=== PATIENT | female | born 1990 | race American Indian/Alaskan Native ===

== ENCOUNTER 2016-09-24 17:24 | Emergency (ER) | payer MEDICAID, OTHER ==
[2016-09-24 18:01] VITALS: BMI 19.0
[2016-09-24 18:06] VITALS: BP 108/72; PULSE 81; RESP 18; TEMP 98; O2SAT 98
--- NOTE | 2016-09-24 19:38 | C.PDOC ---
History Of Present Illness 25 y/o female complaining of forehead rash for 1.5 years but worse over 3 days. Notes that it now extended to the eyelids prompting concern. Patient has been trying an OTC eczema cream without relief. Denies any fever, chills, shortness of breath, allergens, new medications, or foods. She denies being seen by dermatology in the past. Time Seen by Provider: 09/24/16 18:45 Chief Complaint (Nursing): Abnormal Skin Integrity History Per: Patient History/Exam Limitations: no limitations Onset/Duration Of Symptoms: Days Current Symptoms Are (Timing): Worse Location Of Injury: Anterior: Head Quality Of Symptoms: Itching Severity: Moderate Recent travel outside of the [place]: No Additional History Per: Patient Past Medical History Vital Signs: Last Vital Signs Temp 98 F 09/24/16 18:03 Pulse 81 09/24/16 18:03 Resp 18 09/24/16 18:03 BP 108/72 09/24/16 18:03 Pulse Ox 98 09/24/16 20:37 - [facility] Procedures INTRODUCTION OF SERUM/TOX/VACCINE INTO MUSCLE, PERC APPROACH (04/24/15) REPAIR PERINEUM MUSCLE, OPEN APPROACH (04/24/15) Family History: States: Unknown Family Hx - Social History Hx Tobacco Use: Yes Hx Alcohol Use: No Hx Substance Use: No - Immunization History Hx Tetanus Toxoid Vaccination: No Hx Influenza Vaccination: No Hx Pneumococcal Vaccination: No Review Of Systems Except As Marked, All Systems Reviewed And Found Negative. Constitutional: Negative for: Fever Respiratory: Negative for: Shortness of Breath Skin: Positive for: Rash Physical Exam - Physical Exam Appears: Non-toxic, No Acute Distress Skin: Warm, Dry, Rash (scaly erythematous rash with excoriation to forehead and upper eyelids. ) Head: Atraumatic, Normacephalic Eye(s): bilateral: Normal Inspection, PERRL, EOMI Ear(s): Bilateral: Normal Nose: No Epistaxis, No Deformity Oral Mucosa: Moist Throat: Normal, No Erythema, No Exudate Neck: Normal ROM, Supple Chest: Symmetrical, No Deformity Cardiovascular: Rhythm Regular Respiratory: Normal Breath Sounds, No Stridor, No Wheezing Extremity: Normal ROM ED Course And Treatment O2 Sat by Pulse Oximetry: 98 (RA) Pulse Ox Interpretation: Normal Medical Decision Making Medical Decision Making: Recommended that the patient be seen by dermatology. Disposition Doctor Will See Patient In The: Office - Disposition Disposition: HOME/ ROUTINE Disposition Time: 19:28 Condition: STABLE Additional Instructions: Follow up with your primary medical doctor or clinic in 2-5 days for further evaluation. Take medications as prescribed. Return to the emergency department at any time if symptoms persist or worsen. Prescriptions: DiphenhydrAMINE [Benadryl] 25 mg PO Q6 #20 cap Colloidal Oatmeal [Eczema Relief] 1 ml TP BID #1 cream..g. predniSONE [Prednisone] 40 mg PO DAILY #8 tab Instructions: Dermatitis (ED) - Clinical Impression Clinical Impression: Atopic dermatitis - Scribe Statement The provider has reviewed the documentation as recorded by the Scribe Guillermina Benavides
== END 2016-09-24 19:43 | disposition home or self-care (01) ==
LOC: C.ER 17:24
DX: L20.9 Atopic dermatitis, unspecified (principal)

== ENCOUNTER 2016-12-02 15:29 | Emergency (ER) | payer MEDICAID ==
[2016-12-02 15:29] VITALS: BMI 19.0
[2016-12-02 15:36] VITALS: BP 130/84; RESP 18
--- NOTE | 2016-12-02 16:29 | C.PDOC ---
History Of Present Illness 25-year-old female, presents to the emergency department requesting test. Denies abdominal pain, nausea/vomiting, vaginal bleeding/discharge, or any other associated symptoms. No other complaints at this time. Time Seen by Provider: 12/02/16 15:56 Chief Complaint (Nursing): Medical Clearance History Per: Patient History/Exam Limitations: no limitations Past Medical History Reviewed: Historical Data, Nursing Documentation, Vital Signs Vital Signs: Last Vital Signs Temp 98 F 12/02/16 17:08 Pulse 61 12/02/16 17:08 Resp 18 12/02/16 17:08 BP 130/84 12/02/16 15:33 Pulse Ox 100 12/02/16 18:21 - [facility] Procedures INTRODUCTION OF SERUM/TOX/VACCINE INTO MUSCLE, PERC APPROACH (04/24/15) REPAIR PERINEUM MUSCLE, OPEN APPROACH (04/24/15) Family History: States: No Known Family Hx - Social History Hx Tobacco Use: Yes Hx Alcohol Use: Yes Hx Substance Use: No - Immunization History Hx Tetanus Toxoid Vaccination: No Hx Influenza Vaccination: No Hx Pneumococcal Vaccination: No Review Of Systems Except As Marked, All Systems Reviewed And Found Negative. Constitutional: Negative for: Fever Cardiovascular: Negative for: Chest Pain Respiratory: Negative for: Shortness of Breath Gastrointestinal: Negative for: Nausea, Vomiting, Abdominal Pain Genitourinary: Negative for: Vaginal Discharge, Vaginal Bleeding Physical Exam - Physical Exam Appears: Non-toxic, No Acute Distress Skin: Warm, Dry, No Rash Head: Atraumatic Eye(s): bilateral: Normal Inspection Nose: Normal Neck: Normal ROM Respiratory: No Accessory Muscle Use Extremity: Normal ROM Neurological/Psych: Oriented x3 ED Course And Treatment O2 Sat by Pulse Oximetry: 100 Disposition - Disposition Referrals: [facility] [Outside] Disposition: HOME/ ROUTINE Disposition Time: 16:28 Condition: STABLE Additional Instructions: Follow up with PND/OBGYN within 1-2 days. Return to ED if feel worse. Instructions: (ED) - Clinical Impression Clinical Impression: Positive test - Scribe Statement The provider has reviewed the documentation as recorded by the Scribe Alexander Galvez All medical record entries made by the Scribe were at my direction and personally dictated by me. I have reviewed the chart and agree that the record accurately reflects my personal performance of the history, physical exam, medical decision making, and the department course for this patient. I have also personally directed, reviewed, and agree with the discharge instructions and disposition.
[2016-12-02 17:10] VITALS: PULSE 61; TEMP 98
[2016-12-02 18:22] VITALS: O2SAT 100
== END 2016-12-02 17:09 | disposition home or self-care (01) ==
LOC: C.ER 15:29
DX: Z32.01 Encounter for pregnancy test, result positive (principal)

== ENCOUNTER 2016-12-31 09:14 | Emergency (ER) | payer MEDICAID ==
[2016-12-31 09:14] VITALS: BMI 19.0
[2016-12-31] MEDS ORDERED: Sodium Chloride 0.9% 1,000 ML IV STA (10:09)
--- NOTE | 2016-12-31 10:28 | C.PDOC ---
History Of Present Illness 26 y/o female who is currently around 8 weeks () presents to the ED for evaluation of generalized weakness and nausea which began last night. Patient denies fever, chills, cough, shortness of breath, abdominal pain, and vaginal bleeding. Time Seen by Provider: 12/31/16 09:53 Chief Complaint (Nursing): Abdominal Pain History Per: Patient History/Exam Limitations: no limitations Onset/Duration Of Symptoms: Hrs Current Symptoms Are (Timing): Still Present Radiation Of Pain To:: None Quality Of Discomfort: denies: "Pain" Associated Symptoms: Nausea. denies: Fever, Chills, Vomiting Additional History Per: Patient Past Medical History Reviewed: Historical Data, Nursing Documentation, Vital Signs Vital Signs: Last Vital Signs Temp 98.5 F 12/31/16 11:05 Pulse 111 H 12/31/16 11:05 Resp 16 12/31/16 11:05 BP 105/68 12/31/16 11:05 Pulse Ox 100 12/31/16 11:05 - Medical History PMH: No Chronic Diseases Surgical History: No Surg Hx - [facility] Procedures INTRODUCTION OF SERUM/TOX/VACCINE INTO MUSCLE, PERC APPROACH (04/24/15) REPAIR PERINEUM MUSCLE, OPEN APPROACH (04/24/15) Family History: States: Unknown Family Hx - Social History Hx Tobacco Use: Yes Hx Alcohol Use: Yes Hx Substance Use: No - Immunization History Hx Tetanus Toxoid Vaccination: Yes Hx Influenza Vaccination: Yes Hx Pneumococcal Vaccination: No Review Of Systems Except As Marked, All Systems Reviewed And Found Negative. Constitutional: Negative for: Fever, Chills Respiratory: Negative for: Cough, Shortness of Breath Gastrointestinal: Positive for: Nausea. Negative for: Vomiting, Abdominal Pain Genitourinary: Negative for: Vaginal Bleeding Physical Exam - Physical Exam Additional Physical Exam Comments: Constitutional: No acute distress. Head: Normocephalic. Atraumatic. Eyes: PERRL. No conjunctival pallor. ENT: Moist mucous membranes. Neck: Supple. Cardiovascular: Tachycardic. Radial pulse 2+ bilaterally. Chest: No tenderness. Respiratory: Clear to auscultation bilaterally. GI: Soft. Nontender. Nondistended. Back: No CVA tenderness. Musculoskeletal: No tenderness or swelling of extremities. Capillary refill: less than 2 seconds Skin: No rash. Neurologic: Alert, no focal deficit. ED Course And Treatment - Laboratory Results Result Diagrams: 12/31/16 10:31 12/31/16 10:31 O2 Sat by Pulse Oximetry: 98 (on RA) Pulse Ox Interpretation: Normal Medical Decision Making Medical Decision Making: Impression: 26y/o female with generalized weakness, nausea Plan: * UA * IV fluids * reassess and disposition Progress: UA ordered and reviewed. Patient received IV fluids. Patient feels much better after treatment, HR improved, BP normal. Offered additional IVF but patient feels comfortable to go home and prefers oral rehydration. F/u OBGYN, return to ER for worsening pain, bleeding, dyspnea, syncope, or any other problem. Disposition - Disposition Disposition: HOME/ ROUTINE Disposition Time: 12:03 Condition: STABLE Prescriptions: Doxylamine/Pyridoxine HCl (B6) [Kimi Rooney 10-10 mg Tablet] 1 tab PO QPM #100 tablet. Instructions: Morning Sickness (ED), Dehydration (ED) Forms: Work Excuse - Clinical Impression Clinical Impression: related nausea, antepartum - Scribe Statement The provider has reviewed the documentation as recorded by the Scribe (Joyce Gallagher) Provider Attestation: All medical record entries made by the Scribe were at my direction and personally dictated by me. I have reviewed the chart and agree that the record accurately reflects my personal performance of the history, physical exam, medical decision making, and the department course for this patient. I have also personally directed, reviewed, and agree with the discharge instructions and disposition.
[2016-12-31] MEDS ORDERED: Sodium Chloride 0.9% 1,000 ML ONE (10:34)
[2016-12-31 10:35] LABS: BASO % 0.2 % (0.0-2.0); EOS % 0.1 % (0.0-4.0); HEMATOCRIT 39.2 % (34.0-47.0); LYMPH # 0.5 K/uL (1.0-4.3); LYMPH % 5.5 % (20.0-40.0); MEAN CELL VOLUME 81.8 fL (81.0-99.0); MEAN CORPUSCULAR HEMOGLOBIN 26.7 pg (27.0-31.0); MEAN CORPUSCULAR HGB CONC 32.7 g/dL (33.0-37.0); MEAN PLATELET VOLUME 7.9 fL (7.2-11.7); MONO # 0.5 K/uL (0.0-0.8); MONO % 4.9 % (0.0-10.0); PLATELET COUNT 212 K/uL (130-400); RED CELL DISTRIBUTION WIDTH 13.9 % (11.5-14.5); WHITE BLOOD COUNT 9.3 K/uL (4.8-10.8)
[2016-12-31 10:39] LABS: RBC URINE 3 /hpf (0-3); URINE BACTERIA RARE (<OCC); URINE BILIRUBIN NEGATIVE (NEGATIVE); URINE BLOOD NEGATIVE (NEGATIVE); URINE COLOR Amber (YELLOW); URINE GLUCOSE (UA) NORMAL (Normal); URINE KETONE 2+ mg/dL (NEGATIVE); URINE LEUKOCYTE ESTERASE 3+ Leu/uL (Negative); URINE PROTEIN 1+ mg/dL (NEGATIVE); URINE UROBILINOGEN NORMAL mg/dL (0.2-1.0); WBC URINE 12 /hpf (0-5)
[2016-12-31 10:44] LABS: CHLORIDE 100 mmol/L (98-107); POTASSIUM 3.9 mmol/L (3.6-5.2); SODIUM 134 mmol/L (132-148)
[2016-12-31 10:46] LABS: GFR AFRICAN-AMERICAN > 60
[2016-12-31 10:47] LABS: ALB/GLOB RATIO 1.1 (1.0-2.1); ALKALINE PHOSPHATASE 53 U/L (38-126); ALT/SGPT 27 U/L (9-52); AST/SGOT 21 U/L (14-36); BILIRUBIN,TOTAL 1.2 mg/dL (0.2-1.3); BLOOD UREA NITROGEN 10 mg/dL (7-17); CARBON DIOXIDE 22 mmol/L (22-30); GLUCOSE,RANDOM 93 mg/dL (65-105); TOTAL PROTEIN 7.4 g/dL (6.3-8.3)
[2016-12-31 10:48] LABS: CALCIUM 8.8 mg/dl (8.6-10.4)
[2016-12-31 10:52] LABS: NEUTROPHIL 88 % (50-75); REACTIVE LYMPHOCYTES 1 % (0-0); TOTAL CELLS COUNTED 100
[2016-12-31 11:06] VITALS: RESP 16
[2016-12-31 12:23] VITALS: BP 95/66; PULSE 102; TEMP 99.9; O2SAT 99
== END 2016-12-31 12:23 | disposition home or self-care (01) ==
LOC: C.ER 09:14
DX: O26.891 Other specified pregnancy related conditions, first trimester (principal); R11.0 Nausea; Z3A.08 8 weeks gestation of pregnancy
CPT/HCPCS: 80053; 81001; 85025; 87086; 96360; 99284; J7040

== ENCOUNTER 2017-02-15 10:37 | Emergency (ER) | payer MEDICAID ==
[2017-02-15 10:37] VITALS: BMI 19.0
[2017-02-15 11:48] LABS: RBC URINE 2 /hpf (0-3); URINE BACTERIA OCC (<OCC); URINE BILIRUBIN NEGATIVE (NEGATIVE); URINE BLOOD NEGATIVE (NEGATIVE); URINE COLOR Amber (YELLOW); URINE GLUCOSE (UA) NORMAL (Normal); URINE KETONE TRACE mg/dL (NEGATIVE); URINE LEUKOCYTE ESTERASE 3+ Leu/uL (Negative); URINE PROTEIN 1+ mg/dL (NEGATIVE); WBC URINE 34 /hpf (0-5)
[2017-02-15 11:54] LABS: BASO % 0.2 % (0.0-2.0); EOS % 0.2 % (0.0-4.0); HEMATOCRIT 31.4 % (34.0-47.0); LYMPH # 0.9 K/uL (1.0-4.3); LYMPH % 5.5 % (20.0-40.0); MEAN CELL VOLUME 81.7 fL (81.0-99.0); MEAN CORPUSCULAR HEMOGLOBIN 26.9 pg (27.0-31.0); MEAN PLATELET VOLUME 7.9 fL (7.2-11.7); MONO # 1.2 K/uL (0.0-0.8); MONO % 7.6 % (0.0-10.0); PLATELET COUNT 202 K/uL (130-400); RED CELL DISTRIBUTION WIDTH 14.1 % (11.5-14.5); WHITE BLOOD COUNT 15.9 K/uL (4.8-10.8)
[2017-02-15 12:01] LABS: INR 1.1
[2017-02-15 12:05] LABS: ALKALINE PHOSPHATASE 52 U/L (38-126); ALT/SGPT 22 U/L (9-52); AST/SGOT 14 U/L (14-36); BILIRUBIN,TOTAL 0.6 mg/dL (0.2-1.3); BLOOD UREA NITROGEN 7 mg/dL (7-17); CARBON DIOXIDE 20 mmol/L (22-30); CHLORIDE 102 mmol/L (98-107); GFR AFRICAN-AMERICAN > 60; GLUCOSE,RANDOM 102 mg/dL (65-105); POTASSIUM 3.8 mmol/L (3.6-5.2); SODIUM 133 mmol/L (132-148); TOTAL PROTEIN 6.4 g/dL (6.3-8.3)
[2017-02-15 12:11] LABS: NEUTROPHIL 89 % (50-75); TOTAL CELLS COUNTED 100
--- NOTE | 2017-02-15 12:26 | C.PDOC ---
History Of Present Illness 26 year old female presents to the emergency department with complaints of pelvic pressure beginning yesterday, mid-chest pain when breathing, body aches, and mild cough for two days. Patient notes she is 14 weeks and visited her OB yesterday and had US and routine blood work that were both normal. She denies fever, abdominal pain, nausea, or vomiting. Chief Complaint (Nursing): Female Genitourinary History Per: Patient History/Exam Limitations: no limitations Onset/Duration Of Symptoms: Days (pelvic pressure began yesterday morning, rest of symptoms began two days ago. ) Current Symptoms Are (Timing): Still Present Quality Of Discomfort: Pressure Associated Symptoms: Chest Pain (mid-chest pain when breathing ). denies: Fever , Chills, Nausea, Vomiting Recent travel outside of the [place]: No Additional History Per: Prior Records Abnormal Vaginal Bleeding: No Past Medical History Reviewed: Historical Data, Nursing Documentation, Vital Signs Vital Signs: Last Vital Signs Temp 98.3 F 02/15/17 16:25 Pulse 118 H 02/15/17 16:25 Resp 20 02/15/17 16:25 BP 98/63 L 02/15/17 16:25 Pulse Ox 100 02/15/17 17:53 - [facility] Procedures INTRODUCTION OF SERUM/TOX/VACCINE INTO MUSCLE, PERC APPROACH (04/24/15) REPAIR PERINEUM MUSCLE, OPEN APPROACH (04/24/15) Family History: States: Unknown Family Hx - Social History Hx Tobacco Use: Yes Hx Alcohol Use: Yes Hx Substance Use: No - Immunization History Hx Tetanus Toxoid Vaccination: Yes Hx Influenza Vaccination: Yes Hx Pneumococcal Vaccination: No Review Of Systems Constitutional: Positive for: Other (generalized body aches). Negative for: Fever, Chills Cardiovascular: Positive for: Chest Pain Respiratory: Positive for: Cough. Negative for: Shortness of Breath Gastrointestinal: Negative for: Nausea, Vomiting, Abdominal Pain, Diarrhea Genitourinary: Positive for: Pelvic Pain (pelvic pressure ) Musculoskeletal: Negative for: Back Pain Physical Exam - Physical Exam Appears: Non-toxic, No Acute Distress Skin: Warm, Dry Head: Atraumatic Eye(s): bilateral: Normal Inspection, EOMI Oral Mucosa: Moist Neck: Supple Chest: Symmetrical, No Deformity, No Tenderness Cardiovascular: Rhythm Regular Respiratory: Normal Breath Sounds, No Accessory Muscle Use, No Rales, No Rhonchi , No Stridor, No Wheezing Gastrointestinal/Abdominal: Soft, Tenderness (suprapubic tenderness ), No Distention, No Guarding, No Rebound Neurological/Psych: Oriented x3, Normal Speech, Normal Cognition ED Course And Treatment - Laboratory Results Result Diagrams: 02/15/17 11:50 02/15/17 11:50 O2 Sat by Pulse Oximetry: 100 (room air ) - Radiology CXR: Viewed By Me, Read By Radiologist CXR Interpretation: Yes: No Acute Disease Nexus Criteria: Negative - CT Scan/US Transvaginal pelvic ultrasound Other Rad Studies (CT/US): Read By Radiologist, Radiology Report Reviewed CT/US Interpretation: Findings: There is a single living fetus in transverse presentation. Posterior fundal placenta. Low-lying placenta terminates approximately 1.6 cm away from the cervix. Bilateral ovaries are not visualized. Cervix length measures approximately 3.3 cm. Measurements and calculations: Fetus has a composite sonographic age of 15 weeks 1 day. This calculation is based on the biparietal diameter, head circumference, abdominal circumference, and femur length. Estimated heart rate 157.9 beats per min. Impression: Single living fetus with a composite sonographic age of 15 weeks 1 days. Posterior fundal placenta appears low lying terminating approximately 1.6 cm away from the cervix. Estimated heart rate 157.9 beats per min. Advise an anomaly screen at 16-18 weeks gestational age. Progress Note: Labs, pelvic US, and CXR were ordered. Patient has slightly elevated D-Dimer that is acceptable for patient's in second trimester since less than 1,000. WBC was elevated, UA is showing UTI. Patient was given IV fluids and Rocephin IV. Patient was discharged and instructed to return to emergency department immediately if symptoms worsen. Disposition - Disposition Disposition: HOME/ ROUTINE Disposition Time: 16:07 Condition: STABLE Additional Instructions: Follow up with your PMD within 1-2 days. Return to ED immediately if feel worse. Prescriptions: Cephalexin [cephalexin] 500 mg PO Q6 #28 cap Instructions: Chest Pain (ED), Urinary Tract Infection in (ED) Forms: [employer] ([place]) - Clinical Impression Clinical Impression: UTI (urinary tract infection) during , Chest pain, Pelvic pressure in - Scribe Statement The provider has reviewed the documentation as recorded by the Scribjosefina Last All medical record entries made by the Scribe were at my direction and personally dictated by me. I have reviewed the chart and agree that the record accurately reflects my personal performance of the history, physical exam, medical decision making, and the department course for this patient. I have also personally directed, reviewed, and agree with the discharge instructions and disposition.
--- NOTE | 2017-02-15 13:28 | US ---
Indication: Pelvic pain Comparison: Transvaginal pelvic ultrasound performed 01/18/17 Technique: Real-time ultrasound was performed through the pelvis. Findings: There is a single living fetus in transverse presentation. Posterior fundal placenta. Low-lying placenta terminates approximately 1.6 cm away from the cervix. Bilateral ovaries are not visualized. Cervix length measures approximately 3.3 cm. Measurements and calculations: Fetus has a composite sonographic age of 15 weeks 1 day. This calculation is based on the biparietal diameter, head circumference, abdominal circumference, and femur length. Estimated heart rate 157.9 beats per min. Impression: Single living fetus with a composite sonographic age of 15 weeks 1 days. Posterior fundal placenta appears low lying terminating approximately 1.6 cm away from the cervix. Estimated heart rate 157.9 beats per min. Advise an anomaly screen at 16-18 weeks gestational age.
[2017-02-15] MEDS ORDERED: Sodium Chloride 0.9% 1,000 ML IV STA (13:38)
[2017-02-15 14:26] VITALS: RESP 20; O2SAT 100
--- NOTE | 2017-02-15 14:29 | RAD ---
HISTORY: leucocytosis, pleuritic pain, 15 wks pregn COMPARISON: None available. TECHNIQUE: Chest, one view. FINDINGS: LUNGS: No focal consolidation. Right lower lobe nodular density measuring approximately 8 mm, possibly nipple shadow. Please note that chest x-ray has limited sensitivity for the detection of pulmonary masses. PLEURA: No significant pleural effusion identified. No definite pneumothorax . CARDIOVASCULAR: Heart size appears within normal limits. OSSEOUS STRUCTURES: No acute osseous abnormality identified. VISUALIZED UPPER ABDOMEN: Unremarkable. OTHER FINDINGS: None. IMPRESSION: No focal consolidation, significant pleural effusion, or definite pneumothorax identified. 8 mm nodular density at the right lung base, possibly nipple shadow.
[2017-02-15] MEDS ORDERED: cefTRIAXone IV 1 gm in Dextros 50 ML IVPB ONE (14:55)
[2017-02-15 16:26] VITALS: BP 98/63; PULSE 118; TEMP 98.3
== END 2017-02-15 16:24 | disposition home or self-care (01) ==
LOC: C.ER 10:37
DX: O23.42 Unspecified infection of urinary tract in pregnancy, second trimester (principal); O26.892 Other specified pregnancy related conditions, second trimester; R07.89 Other chest pain; Z3A.15 15 weeks gestation of pregnancy
CPT/HCPCS: 71010; 76815; 80053; 81001; 85025; 85378; 85610; 85730; 87086; 96361; 96365; 99285; J0696; J7040

== ENCOUNTER 2017-07-04 12:47 | Emergency (ER) | payer MEDICAID ==
[2017-07-04 13:09] VITALS: BMI 22.1
--- NOTE | 2017-07-04 13:45 | OBHP ---
Datetime: 07/04/2017 13:35 IP Adm Impression: , intrauterine ; No Active Labor IP Admit Plan: Observation/Evaluation Admit Comment, IP Provider: IUP at 34 wks presnts here today complaining of pelvic discomfort. She r eports good movements, denies frequency and dysuria.Denies VB or LOF. [place]- No uterine activity seen. FHR- category 1, Cx- Assessment: IUP at 34wks Pelvic discomfort. Plan: UA Pelvic Type - PN: Adequate Extremities - PN: Normal Abdomen - PN: Normal Back - PN: Normal Lungs - PN: Normal Heart - PN: Normal General - PN: Normal FHR - Baseline A Provider: 140 Membranes, Provider: Intact Contraction Comments Provider: None Gestation - Est Wks by US: 34.0 EGA AdmitDate IP: 34.5 Vital Signs Provider: Reviewed IP Chief Complaint: Maternal discomfort NICHD Variability Prov Fetus A: Moderate 6-25bpm NICHD Accel Fetus A IP Provider: 15X15 FHR Category Provider Fetus A: Category I
[2017-07-04 14:00] LABS: RBC URINE 2 /hpf (0-3); URINE BACTERIA RARE (<OCC); URINE BILIRUBIN NEGATIVE (NEGATIVE); URINE BLOOD NEGATIVE (NEGATIVE); URINE COLOR Yellow (YELLOW); URINE GLUCOSE (UA) NORMAL (Normal); URINE KETONE NEGATIVE (NEGATIVE); URINE LEUKOCYTE ESTERASE 3+ Leu/uL (Negative); URINE PROTEIN NEGATIVE (NEGATIVE); URINE UROBILINOGEN NORMAL mg/dL (0.2-1.0); WBC URINE 25 /hpf (0-5)
--- NOTE | 2017-07-04 14:18 | OBHP ---
Datetime: 07/04/2017 13:35 Admit Comment, IP Provider: IUP at 34 wks presnts here today complaining of pelvic discomfort. She r eports good movements, denies frequency and dysuria.Denies VB or LOF. [place]- No uterine activity seen. FHR- category 1, Cx- Assessment: IUP at 34wks Pelvic discomfort. Plan: UA results: LE- 3+ WBC- >25/HPF Tx: Macrobid 100mg po Q BID X 7 days. F/U with OB practitioner within 1 week.
[2017-07-04 18:29] VITALS: BP 95/56; PULSE 86; TEMP 98.2; O2SAT 100
== END 2017-07-04 14:28 | disposition home or self-care (01) ==
LOC: C.EROB 12:47
DX: O26.893 Other specified pregnancy related conditions, third trimester (principal); Z3A.34 34 weeks gestation of pregnancy; R10.2 Pelvic and perineal pain

== ENCOUNTER 2017-07-07 23:39 | Emergency (ER) | payer MEDICAID ==
--- NOTE | 2017-07-08 00:35 | OBHP ---
Datetime: 07/08/2017 00:21 IP Adm Impression: , intrauterine ; No Active Labor IP Adm Impression Other: Hemorrhoids IP Admit Plan: Observation/Evaluation; Discharge home Admit Comment, IP Provider: IUP at 35wks presents here today c/o vaginal spotting which she saw afte r wiping. She believes it may have been coming from the anus. Pt denies any LOF but feels good movements. She denies any history of hemorrhoids. [place]- none, FHR- category 1 , Cx-0/0/-3 Speculum exam: No blood or bleeding point identified. No active bleeding from the rectum Assessment: IUP at 35wks Rectal Spotting, No active bleeding. Plan: F/U with OB doctor in 1 week. Pelvic Type - PN: Adequate Extremities - PN: Normal Abdomen - PN: Normal Breast - PN: Normal Lungs - PN: Normal Heart - PN: Normal Neurologic - PN: Normal General - PN: Normal Presentation-Admit: Vertex FHR - Baseline A Provider: 150 Membranes, Provider: Ruptured Comments, ACOG Physical Exam: Abd: Soft, NT, BS- present UT- firm Gestation - Est Wks by US: 35.2 EGA AdmitDate IP: 35.2 Vital Signs Provider: Reviewed IP Chief Complaint: Maternal discomfort NICHD Variability Prov Fetus A: Moderate 6-25bpm NICHD Accel Fetus A IP Provider: 10X10 FHR Category Provider Fetus A: Category I NICHD Decel Fetus A IP Provider: None Dilatation, Provider: 0 Effacement, Provider: 0 Station, Provider: -3 Genitourinary Exam: Normal
[2017-07-08 10:35] VITALS: BP 108/58; PULSE 93; RESP 20; TEMP 98.5
== END 2017-07-08 00:30 | disposition home or self-care (01) ==
LOC: C.EROB 23:39
DX: O26.893 Other specified pregnancy related conditions, third trimester (principal); K62.5 Hemorrhage of anus and rectum; Z3A.35 35 weeks gestation of pregnancy

== ENCOUNTER 2017-07-15 14:54 | Inpatient (IN) | payer MEDICAID ==
[2017-07-15 15:39] VITALS: BMI 24.1
[2017-07-15] MEDS ORDERED: Betamethasone Soluspan 30 mg/5mL Inj Susp IM ONE (15:39)
[2017-07-15] MEDS ORDERED: Penicillin G 5 Million Unit Vial IVPB ONE ×2 (15:39→16:22)
[2017-07-15] MEDS ORDERED: Lactated Ringer's 1,000 ML IV SCH ×2 (15:45)
[2017-07-15 16:07] LABS: BASO # 0.1 K/uL (0.0-0.2); BASO % 0.5 % (0.0-2.0); EOS # 0.3 K/uL (0.0-0.7); HEMOGLOBIN 10.1 g/dL (11.0-16.0); LYMPH # 1.8 K/uL (1.0-4.3); LYMPH % 16.8 % (20.0-40.0); MEAN CELL VOLUME 82.7 fL (81.0-99.0); MEAN CORPUSCULAR HEMOGLOBIN 27.8 pg (27.0-31.0); MEAN CORPUSCULAR HGB CONC 33.6 g/dL (33.0-37.0); MEAN PLATELET VOLUME 8.3 fL (7.2-11.7); MONO # 1.1 K/uL (0.0-0.8); MONO % 10.7 % (0.0-10.0); NEUT # 7.3 K/uL (1.8-7.0); RBC 3.64 Mil/uL (3.80-5.20); RED CELL DISTRIBUTION WIDTH 13.8 % (11.5-14.5); WHITE BLOOD COUNT 10.6 K/uL (4.8-10.8)
[2017-07-15 16:16] LABS: PROTHROMBIN TIME 11.2 SECONDS (9.7-12.2)
[2017-07-15 16:21] LABS: ALBUMIN 3.2 g/dL (3.5-5.0); ALT/SGPT 28 U/L (9-52); AST/SGOT 28 U/L (14-36); BLOOD UREA NITROGEN 5 mg/dL (7-17); CALCIUM 7.9 mg/dl (8.6-10.4); GFR AFRICAN-AMERICAN > 60; GFR NON-AFRICAN AMERICAN > 60
[2017-07-15 16:34] LABS: SQUAMOUS EPITHIAL 10 /hpf (0-5); URINE AMORPHOUS SEDIMENT RARE /ul (<OCC); URINE BACTERIA FEW (<OCC); URINE BILIRUBIN NEGATIVE (NEGATIVE); URINE CLARITY Hazy (Clear); URINE COLOR Yellow (YELLOW); URINE GLUCOSE (UA) NORMAL (Normal); URINE LEUKOCYTE ESTERASE 3+ Leu/uL (Negative); URINE NITRATE NEGATIVE (NEGATIVE); URINE PROTEIN NEGATIVE (NEGATIVE)
[2017-07-15 16:37] LABS: URINE BLOOD NEGATIVE (NEGATIVE)
--- NOTE | 2017-07-15 18:32 | OBHP ---
Datetime: 07/15/2017 18:13 IP Adm Impression: , intrauterine ; No Active Labor IP Chief Complaint Other: Variable decelerations IP Admit Plan: Admit to unit Admit Comment, IP Provider: This is a private patient of Dr. Amita Gallagher Patient seen and examined at 1430 hours 26 y.o. , LMP 10/24/16, JOSELYN 08/10/17, EGA 36w 1d, c/o vaginal bleeding approx 1300 hours, aft er Ob visit earlier thismorinng with cervical exam. Also onset of LAP 1400 hours, pain scale now 3/1 0. (+) AFM; denies LOF, VB. issues: UTI x 2 P Ob: 2015, , male, 7lb 8oz; no complications. 2013, Sp Ab x 1, 8 wks, wiith D_C; no complicat ions [employer]: 12 x 28 x 7. No h/o STI/ abnoarmal Pap. PMH: denies PSH: denies NKDA Meds: PNV Soc Hx: denies tobacco , illicit drug or EtOH use. 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 Not with FOB Fam Hx: Mother alive 53 - DM, cholesterolemia, HTN. Father alive 55 y. - h/o prostate cancer. P.E.: as above. Petite, in NAD. Awake, alert, oriented to time, person and place. Pleasant and co operative Assessment: 26 y.o. P1011, 37w 1d, cervical dilatation with variable deceleratoin in first 30 cezar zulma of monitoring; whch has resolved spontaneously. No, Category 1 traicng. D/W patient, on b ehalf of Dr. Gallagher: 1) admission;2) administer celestone;3) observe. Patient expressed an understand ing and agrees. The possiblioity of PT delivery and transfer if nfant to Level II or II center was al so discuassed. Hers and her mother's questions were answered. Clinically stable. Plan: 1) Admit 2) NPO 3) IVF 4) Admission labs, incl coagulation profile 5) Celestone 6) Oenicillin 7) U/A 8) Continuous EFM 9) Observe - as per and discussed wiwht Dr. Gallagher Pelvic Type - PN: Adequate Extremities - PN: Normal Abdomen - PN: Normal Back - PN: Normal Breast - PN: Not Done Lungs - PN: Normal Heart - PN: Normal Thyroid - PN: Not Done Neurologic - PN: Normal HEENT - PN: Normal General - PN: Normal Presentation-Admit: Vertex FHR - Baseline A Provider: 145 Membranes, Provider: Intact Contraction Comments Provider: 2-5 Comments, ACOG Physical Exam: Abdomen: Soft. Gravid. Fundal height 34cm All other systesms reviewed and are negative Gestation - Est Wks by US: 36w 1d EGA AdmitDate IP: 36.2 Vital Signs Provider: Reviewed IP Chief Complaint: Vaginal bleeding NICHD Variability Prov Fetus A: Moderate 6-25bpm NICHD Accel Fetus A IP Provider: 15X15 NICHD Decel Fetus A IP Provider: None Dilatation, Provider: 3 Effacement, Provider: 50 Station, Provider: -3 Genitourinary Exam: Normal DTRs - PN: Not Done
--- NOTE | 2017-07-15 18:54 | OBADHP ---
Datetime: 07/15/2017 18:13 IP Chief Complaint Other: Variable decelerations Admit Comment, IP Provider: This is a private patient of Dr. Amita Gallagher Patient seen and examined at 1430 hours 26 y.o. , LMP 10/24/16, JOSELYN 08/10/17, EGA 36w 1d, c/o vaginal bleeding approx 1300 hours, aft er Ob visit earlier thismorinng with cervical exam. Also onset of LAP 1400 hours, pain scale now 3/1 0. (+) AFM; denies LOF, VB. issues: UTI x 2 P Ob: 2015, , male, 7lb 8oz; no complications. 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 No h/o STI/ abnoarmal Pap. PMH: denies PSH: denies NKDA Meds: PNV Soc Hx: denies tobacco , illicit drug or EtOH use. 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 Not with FOB Fam Hx: Mother alive 53 - DM, cholesterolemia, HTN. Father alive 55 y. - h/o prostate cancer. P.E.: as above. Petite, in NAD. Awake, alert, oriented to time, person and place. Pleasant and co operative Assessment: 26 y.o. P1011, 37w 1d, cervical dilatation with variable deceleratoin in first 30 cezar zulma of monitoring; whch has resolved spontaneously. No, Category 1 traicng. D/W patient, on b ehalf of Dr. Gallagher: 1) admission;2) administer celestone;3) observe. Patient expressed an understand ing and agrees. The possiblioity of PT delivery and transfer if nfant to Level II or II center was al so discuassed. Hers and her mother's questions were answered. Clinically stable. Plan: 1) Admit 2) NPO 3) IVF 4) Admission labs, incl coagulation profile 5) Celestone 6) Oenicillin 7) U/A 8) Continuous EFM 9) Observe - as per and discussed wiwht Dr. Gallagher pt seen and examined adn reports pain with ct ever y5 min 03/17, requesting epidural. pt reports om e bleeding, no clots, pt reexamined /-3 vtx intact plan pain managment pnc g gbs prophylxaix cont currengt mangemtn celestone admissin labs Pelvic Type - PN: Adequate Extremities - PN: Normal Abdomen - PN: Normal Back - PN: Normal Breast - PN: Not Done Lungs - PN: Normal Heart - PN: Normal Thyroid - PN: Not Done Neurologic - PN: Normal HEENT - PN: Normal General - PN: Normal Presentation-Admit: Vertex FHR - Baseline A Provider: 145 Membranes, Provider: Intact Contraction Comments Provider: 2-5 Comments, ACOG Physical Exam: Abdomen: Soft. Gravid. Fundal height 34cm All other systems reviewed and are negative Gestation - Est Wks by US: 36w 1d IP Hx Assessment: The History has been Reviewed and is Current Vital Signs Provider: Reviewed IP Chief Complaint: Vaginal bleeding NICHD Variability Prov Fetus A: Moderate 6-25bpm NICHD Accel Fetus A IP Provider: 15X15 NICHD Decel Fetus A IP Provider: None Dilatation, Provider: 3 Effacement, Provider: 50 Station, Provider: -3 Genitourinary Exam: Normal DTRs - PN: Not Done EGA AdmitDate IP: 36.2 IP Adm Impression: , intrauterine ; No Active Labor IP Admit Plan: Admit to unit Datetime: 07/08/2017 00:21 IP Adm Impression Other: Hemorrhoids FHR Category Provider Fetus A: Category I
[2017-07-15] MEDS: Penicillin G Potassium 2.5 MU in Sodium Chloride 0.9% 100 ML IV SCH (20:30)
[2017-07-15] MEDS ORDERED: Bupivacaine HCl 0.25% PF (10 ml) Inj ONE ×2 (20:42→22:39)
[2017-07-15] MEDS ORDERED: Bupivacaine HCl/FentaNYL Cit 100 ML EPI ONE (20:43)
[2017-07-16] MEDS: Penicillin G Potassium 2.5 MU in Sodium Chloride 0.9% 100 ML IV SCH ×2 (00:30→04:30)
--- NOTE | 2017-07-16 05:15 | OBPN ---
Datetime: 07/16/2017 05:13 IP Progress Impression: Normal progression of labor IP Informed Consent Obtain: Vaginal Delivery; Risks, Benefits and Alternatives Discussed IP Procedures: Artificial ROM IP Progress Plan: Continue present management Membranes, Provider: Ruptured Amniotic Fluid Color, Provider: Clear Contraction Comments Provider: q 2 min FHR - Baseline A Provider: 120 Gestation - Est Wks by US: 36.3 Presentation-Admit: Vertex IP Progress Note Comment: pt seen and examined c/o pressure s/p epidural VS see above VE 10/100/0 A/P @ 36+ wks in labor, fully dilated start pushing atnticpia Vital Signs Provider: Reviewed NICHD Variability Prov Fetus A: Moderate 6-25bpm Dilatation, Provider: 10 Effacement, Provider: 100 Station, Provider: 0 Datetime: 07/15/2017 18:13 NICHD Accel Fetus A IP Provider: 15X15 NICHD Decel Fetus A IP Provider: None Datetime: 07/08/2017 00:21 FHR Category Provider Fetus A: Category I
[2017-07-16] MEDS ORDERED: Oxycodone/Acetaminophen 5/325 mg Tab PO PRN ×2 (05:18)
[2017-07-16] MEDS ORDERED: Benzocaine/Menthol 20%-0.5% Topical Spray (60 ml) TOP PRN (05:18)
[2017-07-16] MEDS ORDERED: Oxytocin 30 UNIT 30 UNITS/500 ML BAG IV SCH (05:30)
--- NOTE | 2017-07-16 06:07 | OBDS ---
DELIVERY PERSONNEL Delivery Doctor: Sharlene Gallagher MD Brine Maker: Rosa Valiente RN MATERNAL INFORMATION Medications in Delivery: PITOCIN Estimated Blood Loss (ml): 300 Placenta Cultured: Yes Maternal Complications: None Provider Comments: pt was fully dilated and pushing, atrumtaic, spontaneous deliveyr of head in alex positin, no nuchal cord noted. atruamtic, spontanenous delivery of anterior followed by posterir shou lder followed by delivery of body. both oral and nasal passages of baby bulb suctioned. ubmiclus cor d clamped and cut. baby hadned to mother on abodmen. cord blood and cord gases collecated adn sent x 2. spontaneous delivery of intact placenta with membranes. fundus firm. intact perienum, no laceratio ns, good hemostasis, no complicatoins live male ifant apgsrs 9,9 weight of 5lbs 14 ounces ebl 300 ml LABOR SUMMARY EDC: 08/10/2017 00:00 No. Babies in Womb: 1 Attempted: No Labor Anesthesia: Epidural LABOR INFORMATION Onset of Labor: 07/15/2017 14:00 Complete Dilatation: 07/16/2017 04:40 Oxytocin: N/A Group B Beta Strep: Done, Result Unknown Antibiotics # of Doses: 4 Antibiotics Time of Last Dose: 04:30 Steroids Given: Partial Course MEMBRANES Membranes Rupture Method: Artificial Rupture of Membranes: 07/16/2017 05:10 Length of Rupture (hrs): 0.65 Amniotic Fluid Color: Clear Amniotic Fluid Amount: Large Amniotic Fluid Odor: Normal STAGES OF LABOR Stage 1 hrs: 14 Stage 1 min: 40 Stage 2 hrs: 1 Stage 2 min: 9 Stage 3 hrs: 0 Stage 3 min: 8 Total Time in Labor hrs: 15 Total Time in Labor min: 57 VAGINAL DELIVERY Episiotomy: None Laceration Extension: N/A Laceration Type: None Laceration Repair Note: intact perineum Count Comment: yes BABY A INFORMATION Delivery Date/Time: 07/16/2017 05:49 Method of Delivery: Vaginal Born in Route : No : N/A Forceps: N/A Vacuum Extraction: N/A Shoulder Dystocia : No SHOULDER DYSTOCIA BABY A Infant Delivery Date/Time: 07/16/2017 05:49 PRESENTATION/POSITION BABY A Presentation: Cephalic Cephalic Presentation: Vertex Vertex Position: Left Occipital Anterior Breech Presentation: N/A PLACENTA INFORMATION BABY A Placenta Delivery Time : 07/16/2017 05:57 Placenta Method of Delivery: Spontaneous Placenta Status: Delivered SCORES BABY A Heart Rate 1 min: >100 bpm Resp Effort 1 min: Good Cry Reflex Irritability 1 min: Cough or Sneeze or Pulls Away Muscle Tone 1 min: Active Motion Color 1 min: Body [place], Extremities Blue SCORE 1 MIN: 9 Heart Rate 5 min: >100 bpm Resp Effort 5 min: Good Cry Reflex Irritability 5 min: Cough or Sneeze or Pulls Away Muscle Tone 5 min: Active Motion Color 5 min: Body [place], Extremities Blue SCORE 5 MIN: 9 INFANT INFORMATION BABY A Gestational Age at Delivery: 36.3 Gestational Status: Term Infant Outcome : Liveborn Condition : Stable Infant Sex: Male IDENTIFICATION/MEDS BABY A ID Band Number: [id number] Sensor Number: [id number] WEIGHT/LENGTH BABY A Infant Birthweight (gms): 2365 Weight (lb): 5 Infant Weight (oz): 3 Length Inches: 18.00 Infant Length cms: 45.7 CORD INFORMATION BABY A No. Cord Vessels: 3 Nuchal Cord : N/A Cord Blood Taken: Yes Infant Suction: Mouth; Nose ASSESSMENT BABY A Complications: None Physical Findings at Delivery: Within Normal Limits Respirations: Appears Normal Infant Care By: DR PAULINO Transferred To: Nursery
[2017-07-16] MEDS: Multiple Vitamins Tab PO SCH (14:47)
[2017-07-17 06:45] LABS: BASO % 0.3 % (0.0-2.0); EOS # 0.3 K/uL (0.0-0.7); EOS % 1.9 % (0.0-4.0); HEMOGLOBIN 8.5 g/dL (11.0-16.0); LYMPH # 2.4 K/uL (1.0-4.3); LYMPH % 17.6 % (20.0-40.0); MEAN CELL VOLUME 83.1 fL (81.0-99.0); MEAN CORPUSCULAR HEMOGLOBIN 27.3 pg (27.0-31.0); MEAN CORPUSCULAR HGB CONC 32.8 g/dL (33.0-37.0); MEAN PLATELET VOLUME 8.8 fL (7.2-11.7); MONO # 1.5 K/uL (0.0-0.8); MONO % 10.8 % (0.0-10.0); NEUT # 9.5 K/uL (1.8-7.0); NEUT % 69.4 % (50.0-75.0); NRBC % 0.1 % (0.0-2.0); RBC 3.1 Mil/uL (3.80-5.20); RED CELL DISTRIBUTION WIDTH 14.2 % (11.5-14.5); WHITE BLOOD COUNT 13.7 K/uL (4.8-10.8)
[2017-07-17] MEDS: Multiple Vitamins Tab PO SCH (10:51)
[2017-07-17 16:26] LABS: BASO % 0.3 % (0.0-2.0); EOS # 0.5 K/uL (0.0-0.7); EOS % 3.4 % (0.0-4.0); HEMOGLOBIN 8.5 g/dL (11.0-16.0); LYMPH % 22.2 % (20.0-40.0); MEAN CELL VOLUME 83.9 fL (81.0-99.0); MEAN CORPUSCULAR HEMOGLOBIN 26.6 pg (27.0-31.0); MEAN CORPUSCULAR HGB CONC 31.8 g/dL (33.0-37.0); MEAN PLATELET VOLUME 7.9 fL (7.2-11.7); MONO # 1.5 K/uL (0.0-0.8); MONO % 11.1 % (0.0-10.0); NEUT # 8.5 K/uL (1.8-7.0); NRBC % 0.1 % (0.0-2.0); RBC 3.19 Mil/uL (3.80-5.20); RED CELL DISTRIBUTION WIDTH 13.9 % (11.5-14.5); WHITE BLOOD COUNT 13.5 K/uL (4.8-10.8)
[2017-07-17] MEDS: Hydrocortisone 2.5% Rectal Cream(30 gm) PR SCH (17:25)
--- NOTE | 2017-07-17 20:17 | OBPPN ---
Datetime: 07/17/2017 20:13 PP Pain Prov: Within normal limits PP Nausea Prov: Denies PP Flatus Prov: Yes PP BM Prov: No PP Breasts Prov: Normal PP Heart Prov: Normal PP Lungs Prov: Normal PP Abdomen/Uterus Prov: Normal PP Lochia Prov: Normal PP Vulva/Perineum Prov: Normal PP CVA Tenderness Prov: Normal PP Extremities Prov: Normal PP C/S Incision Prov: Not Applicable PP Progress Prov: Normal PP Impression Prov: Normal progression PP Plan Prov: Continue present management PP Progress Note Prov: pt seen and examiend and reprots pian controlled with medcaion, pt ambiatng, voidng, passing flatus, +BM. pt reports soem pain from hemorrhoid, dnies any cp, sob, lighteands, diz zyness VSS PE see above a/p s/p PPD1 with asymaptomc anemic doing well -iron/colace -sitz bath -cont currentg mangnt -anticate d/c in AM Vital Signs Provider PP: Reviewed
--- NOTE | 2017-07-17 20:17 | OBDCSUM ---
Datetime: 07/17/2017 20:14 Discharged to, Provider: Home Follow up at, Provider: Dr vivas Disch Instr Activity: Normal activity Disch Instr Diet: Regular Discharge Instructions, Provider: Routine instructions given Discharge Diagnosis, Provider: Labor Discharge Time: 07/08/2017 09:15 Follow up in weeks, Provider: 6 weeks Disch Referrals: None Contraception discussed, Prov: Yes Disch Activity Restrictions: No sexual activity; Nothing in vagina - [place], tampons, douche Discharge Comment, Provider: suzanne crenshaw dc in am Contraception after Delivery: Not Planning to Use
[2017-07-18 07:50] VITALS: BP 99/61; PULSE 68; RESP 18; TEMP 98; O2SAT 100
[2017-07-18] MEDS: Hydrocortisone 2.5% Rectal Cream(30 gm) PR SCH (10:21)
[2017-07-18] MEDS: Multiple Vitamins Tab PO SCH (10:27)
[2017-07-18] MEDS ORDERED: Influenza Vaccine 60 mcg/0.5 mL SYR (4YR UP) IM ONE (11:42)
[2017-07-18] MEDS ORDERED: Rubella Virus Vaccine Inj SC ONE (11:44)
== END 2017-07-18 15:00 | disposition home or self-care (01) | DRG 372 ==
LOC: C.EROB 14:54 → C.4D 15:31 → C.4M 07-16 09:00
PROVIDERS: ADMIT Obstetrics & Gynecology; ATTEND Obstetrics & Gynecology
PROC: 10E0XZZ Delivery of Products of Conception, External Approach (ICD-10-PCS; principal; 2017-07-15)
DX: O60.14X0 Preterm labor third trimester with preterm delivery third trimester, not applicable or unspecified (principal); O76 Abnormality in fetal heart rate and rhythm complicating labor and delivery; O99.02 Anemia complicating childbirth; Z3A.36 36 weeks gestation of pregnancy; Z37.0 Single live birth

== ENCOUNTER 2017-10-07 18:36 | Emergency (ER) | payer MEDICAID ==
[2017-10-07 18:36] VITALS: BMI 24.1
[2017-10-07 18:48] VITALS: O2SAT 96
--- NOTE | 2017-10-07 19:51 | C.PDOC ---
History Of Present Illness 26 year old female presents to ED with complaints of cough and not feeling well for one week. She reports cough is now productive of white sputum with associated chest discomfort. She reports feeling headache and chills today and had fever prompting ED visit. Denies any SOB. Time Seen by Provider: 10/07/17 19:32 Chief Complaint (Nursing): Cough, Cold, Congestion History Per: Patient History/Exam Limitations: no limitations Onset/Duration Of Symptoms: Days Current Symptoms Are (Timing): Still Present Associated Symptoms: Chills, Cough Past Medical History Reviewed: Historical Data, Nursing Documentation, Vital Signs Vital Signs: Last Vital Signs Temp 99.7 F H 10/07/17 20:10 Pulse 99 H 10/07/17 20:10 Resp 16 10/07/17 20:10 BP 101/71 10/07/17 20:10 Pulse Ox 96 10/07/17 20:22 - Medical History PMH: No Chronic Diseases Surgical History: No Surg Hx - [facility] Procedures DELIVERY OF PRODUCTS OF CONCEPTION, EXTERNAL APPROACH (07/15/17) INTRODUCTION OF SERUM/TOX/VACCINE INTO MUSCLE, PERC APPROACH (04/24/15) REPAIR PERINEUM MUSCLE, OPEN APPROACH (04/24/15) Family History: States: No Known Family Hx - Social History Hx Tobacco Use: Yes Hx Alcohol Use: Yes Hx Substance Use: No - Immunization History Hx Tetanus Toxoid Vaccination: Yes Hx Influenza Vaccination: Yes Hx Pneumococcal Vaccination: No Review Of Systems Constitutional: Positive for: Chills. Negative for: Fever Eyes: Negative for: Vision Change Respiratory: Positive for: Cough Gastrointestinal: Negative for: Nausea, Vomiting Skin: Negative for: Rash Neurological: Positive for: Headache Physical Exam - Physical Exam Appears: Non-toxic, No Acute Distress Skin: Warm, Dry, No Rash Head: Atraumatic, Normacephalic Eye(s): bilateral: Normal Inspection, PERRL, EOMI Ear(s): Bilateral: Normal Oral Mucosa: Moist Throat: Normal, No Erythema, No Exudate Neck: Normal ROM, Supple Chest: Symmetrical Cardiovascular: Rhythm Regular, No Murmur Respiratory: Normal Breath Sounds, No Rales, No Rhonchi, No Wheezing Gastrointestinal/Abdominal: Soft, No Tenderness, No Guarding, No Rebound Extremity: Bilateral: Atraumatic, Normal ROM Neurological/Psych: Oriented x3, Normal Speech Gait: Steady ED Course And Treatment O2 Sat by Pulse Oximetry: 96 (RA) Pulse Ox Interpretation: Normal Medical Decision Making Medical Decision Making: Patient with fever and cough for one week. No signs of respiratory distress. Patient treated with Motrin and Zithromax. Patient stable for discharge. Disposition Counseled Patient/Family Regarding: Diagnosis, Need For Followup, Rx Given - Disposition Referrals: Sheyla Gallagher MD [Staff Provider] - Disposition: HOME/ ROUTINE Disposition Time: 20:00 Condition: STABLE Additional Instructions: Take Tylenol or Motrin alternating every 4-6 hours for Fever 100.4F or higher. Rest and drink plenty of fluids. May use cool mist humidifier or vaporizer in room. Try taking over the counter antihistamine (Claritin, Marcela, Zyrtec), Decongestant or Cough medicine (Mucinex) as needed every 6-8 hours. Follow up with your primary medical doctor or clinic in 1 week for further evaluation. Prescriptions: Azithromycin [Zithromax] 250 mg PO DAILY #4 tab Instructions: Upper Respiratory Infection (ED) Forms: ffk environment [employer] (Citizen [place]), Work Excuse - POA Present On Arrival: None - Clinical Impression Clinical Impression: Upper respiratory infection - PA / HOPPER ATTENDANT / Resident Statement MD/DO has reviewed & agrees with the documentation as recorded. - Scribe Statement The provider has reviewed the documentation as recorded by the Juvenalibjosefina Palacios All medical record entries made by the Juvenalibjosefina were at my direction and personally dictated by me. I have reviewed the chart and agree that the record accurately reflects my personal performance of the history, physical exam, medical decision making, and the department course for this patient. I have also personally directed, reviewed, and agree with the discharge instructions and disposition.
[2017-10-07 20:11] VITALS: BP 101/71; PULSE 99; RESP 16; TEMP 99.7
== END 2017-10-07 20:11 | disposition home or self-care (01) ==
LOC: C.ER 18:36
DX: J06.9 Acute upper respiratory infection, unspecified (principal); Z87.891 Personal history of nicotine dependence